=== PATIENT | female | born 2000 ===

== ENCOUNTER → 2021-06-24 | Outpatient (CLI) | payer OTHER | LOC: ZCOL.LAB 16:31 | PROVIDERS: Dietitian, Registered | DX: E56.9 Vitamin deficiency, unspecified (principal); R53.1 Weakness ==

== ENCOUNTER 2023-04-20 02:06 | Emergency (ER) | payer OTHER ==
[~2023-04-20] VITALS: Ht 177.8 cm; Wt 68.2 kg
[2023-04-20 02:15] VITALS: TEMP 98.4
[2023-04-20 03:09] VITALS: BP 115/65; PULSE 85
== END 2023-04-20 03:09 | disposition left against medical advice (07) ==
LOC: COL.ER 02:06
DX: R07.89 Other chest pain (principal); R06.02 Shortness of breath